=== PATIENT | female | born 1975 ===

== ENCOUNTER 2021-07-29 05:35 | Day surgery (SDC) | payer OTHER ==
[~2021-07-29 05:35] MED LIST: HUMLOG; LANTUS
== END 2021-07-29 14:15 | disposition home or self-care (01) ==
LOC: CIR.AMB 05:35
PROVIDERS: ATTEND Otolaryngology Otology & Neurotology
DX: H80.01 Otosclerosis involving oval window, nonobliterative, right ear (principal); Z20.822 Contact with and (suspected) exposure to COVID-19

== ENCOUNTER 2021-12-16 05:33 | Day surgery (SDC) | payer OTHER | END 2021-12-16 12:21 | disposition home or self-care (01) | LOC: CIR.AMB 05:33 | PROVIDERS: ATTEND Otolaryngology Otology & Neurotology | DX: H90.72 Mixed conductive and sensorineural hearing loss, unilateral, left ear, with unrestricted hearing on the contralateral side (principal); Z20.822 Contact with and (suspected) exposure to COVID-19 ==